=== PATIENT | male | born 2000 | race Two or more races ===

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

== ENCOUNTER 2021-02-13 02:37 | Emergency (ER) | payer MEDICAID, OTHER ==
[~2021-02-13] VITALS: Ht 170.2 cm; Wt 75.4 kg
[2021-02-13 02:47] VITALS: BP 124/77
[2021-02-13] MEDS ORDERED: LIDOcaine 1% 30ml preserv. free vial IJ ONE (03:15)
[2021-02-13] MEDS ORDERED: CEPH-585 PO (04:06)
== END 2021-02-13 04:24 ==
LOC: ER 02:37
DX: S61.111A Laceration without foreign body of right thumb with damage to nail, initial encounter (principal); V89.2XXA Person injured in unspecified motor-vehicle accident, traffic, initial encounter; Y93.89 Activity, other specified; Y92.89 Other specified places as the place of occurrence of the external cause; Y99.8 Other external cause status
CPT/HCPCS: 12001; 73130; 99283